=== PATIENT | male | born 1955 ===

== ENCOUNTER 2016-09-26 00:20 | Emergency (ER) | payer MEDICAID ==
--- NOTE | 2016-09-26 00:50 | EDPHY ---
H & P Stated Complaint: M1,APPROACHED AMBULANCE WITH SHEATHED KNIFE,STATED NEED LIFE BLOOD,HERE WIT Source: Patient, Police, EMS - Medical/Surgical History Other PMH: DENIES Time Seen by Provider: 09/26/16 00:26 HPI/ROS: HPI The patient presents after being placed on M1 hold by police. The patient approached an ambulance and brandishing a knife saying that he wanted blood . He was acting erratically and the police acted that he had some mental instability so they placed him on a hold and brought him in. He now is in police custody and in handcuffs. He is unwilling to provide much history at this point. REVIEW OF SYSTEMS Constitutional: No fever, no chills. Eyes: No discharge. ENT: No sore throat. Cardiovascular: No chest pain, no palpitations. Respiratory: No cough, no shortness of breath. Gastrointestinal: No abdominal pain, no vomiting. Genitourinary: No hematuria. Musculoskeletal: No back pain. Skin: No rashes. Neurological: No headache. PMHx: Denies Soc Hx: Alcohol abuse, homeless PHYSICAL General Appearance: Alert, yelling at the police currently Eyes: Pupils equal and round no pallor or injection ENT, Mouth: Mucous membranes moist Respiratory: There are no retractions, lungs are clear to auscultation Cardiovascular: Regular rate and rhythm Gastrointestinal: Abdomen is soft and non-tender, no masses, bowel sounds normal Neurological: A&O, moves all extremities Skin: Warm and dry, no rashes Musculoskeletal: Neck is supple non tender Extremities: symmetrical, full range of motion Psychiatric: Patient is oriented X 3, somewhat agitated (Riguzzi,Lili) Constitutional: Initial Vital Signs Temperature (C) 36.9 C 09/26/16 00:39 Heart Rate 100 09/26/16 00:39 Respiratory Rate 24 H 09/26/16 00:39 Blood Pressure 148/95 H 09/26/16 00:39 O2 Sat (%) 96 09/26/16 00:39 O2 Delivery Mode Room Air Allergies/Adverse Reactions: No Known Allergies Allergy (Unverified 09/26/16 00:39) Home Medications: Medication Instructions Recorded NK [No Known Home Meds] 09/26/16 Medical Decision Making ED Course/Re-evaluation: 7:30 a.m.- The patient was stable throughout my shift and he de-escalated and was able to rest while in the emergency room. He is currently awaiting psychiatric evaluation. Labs have returned and revealed that his alcohol was slightly elevated. (Lili Humphries) Care assumed at 6:[address] Lili Humphries with plan for psychiatric evaluation when clinically sober. 1013: psych evaluation obtained, recommendation including Dr. XU Singer opinion we should vacate hold. Not homicidal or suicidal or psychotic now. (Souleymane Tucker) Differential Diagnosis: This is a 60-year-old man who denies any past medical history who presents on an M1 hold brought in by paramedics after threatening them and brandishing a knife. He is quite agitated and seems somewhat psychotic. This could be related to underlying alcohol use. He does not have any past psychiatric history that we are aware of. Differential diagnosis includes alcohol intoxication, polysubstance abuse, psychosis related to underlying schizophrenia. (Lili Humphries) - Data Points Laboratory Results: Laboratory Results 09/26/16 01:14 09/26/16 01:14 09/26/16 09/26/16 01:18 01:14 WBC 5.87 10^3/uL (3.80-9.50) RBC 4.65 10^6/uL (4.40-6.38) Hgb 13.9 g/dL (13.7-17.5) Hct 40.2 % (40.0-51.0) MCV 86.5 fL (81.5-99.8) MCH 29.9 pg (27.9-34.1) MCHC 34.6 g/dL (32.4-36.7) RDW 14.1 % (11.5-15.2) Plt Count 198 10^3/uL (150-400) MPV 8.5 L fL (8.7-11.7) Neut % (Auto) 41.7 % (39.3-74.2) Lymph % (Auto) 35.8 % (15.0-45.0) [place] % (Auto) 19.1 H % (4.5-13.0) Eos % (Auto) 2.2 % (0.6-7.6) Baso % (Auto) 1.0 % (0.3-1.7) Nucleat RBC Rel Count 0.0 % (0.0-0.2) Absolute Neuts (auto) 2.45 10^3/uL (1.70-6.50) Absolute Lymphs (auto) 2.10 10^3/uL (1.00-3.00) Absolute Monos (auto) 1.12 H 10^3/uL (0.30-0.80) Absolute Eos (auto) 0.13 10^3/uL (0.03-0.40) Absolute Basos (auto) 0.06 10^3/uL (0.02-0.10) Absolute Nucleated RBC 0.00 10^3/uL (0-0.01) Immature Gran % 0.2 % (0.0-1.1) Immature Gran # 0.01 10^3/uL (0.00-0.10) Sodium 131 L mEq/L (134-144) Potassium 4.0 mEq/L (3.5-5.2) Chloride 99 mEq/L (97-110) Carbon Dioxide 19 L mEq/l (22-31) Anion Gap 13 mEq/L (8-16) BUN 9 mg/dL (7-23) Creatinine 0.8 mg/dL (0.7-1.3) Estimated GFR > 60 Glucose 114 H mg/dL (70-100) Calcium 9.0 mg/dL (8.5-10.4) Total Bilirubin 0.6 mg/dL (0.1-1.4) AST 78 H IU/L (17-59) ALT 53 IU/L (21-72) Alkaline Phosphatase 71 IU/L (38-126) Total Protein 7.2 g/dL (6.3-8.2) Albumin 4.2 g/dL (3.5-5.0) Urine Opiates Screen NEGATIVE (NEGATIVE) Urine Barbiturates NEGATIVE (NEGATIVE) Ur Phencyclidine Scrn NEGATIVE (NEGATIVE) Ur Amphetamine Screen NEGATIVE (NEGATIVE) U Benzodiazepines Scrn NEGATIVE (NEGATIVE) Urine Cocaine Screen NEGATIVE (NEGATIVE) U Marijuana (THC) Screen NON-NEGATIVE H (NEGATIVE) Ethyl Alcohol 92 H mg/dL (0-10) Departure - Departure Disposition: Home, Routine, Self-Care Clinical Impression: Alcohol intoxication Qualifiers: Complication of substance-induced condition: uncomplicated Qualifier Code: ( F10.120) Alcohol abuse with intoxication, uncomplicated Condition: Good Instructions: Alcohol Intoxication (ED) Referrals: [facility] [Outside] - As per Instructions
[2016-09-26 01:21] LABS: % IMMATURE GRANULYOCYTES 0.2 % (0.0-1.1); ABSOLUTE IMMATURE GRANULOCYTES 0.01 10^3/uL (0.00-0.10); ADD DIFF? NO; ADD MORPH? NO; ADD SCAN? NO; ATYPICAL LYMPHOCYTE FLAG 30 (0-99); FRAGMENT RBC FLAG 0 (0-99); HEMATOCRIT 40.2 % (40.0-51.0); HEMOGLOBIN 13.9 g/dL (13.7-17.5); LEFT SHIFT FLG 0 (0-99); LIPEMIA HEMOLYSIS FLAG 90 (0-99); MEAN CELL HEMOGLOBIN 29.9 pg (27.9-34.1); MEAN CELL HEMOGLOBIN CONCENTR. 34.6 g/dL (32.4-36.7); MEAN CELL VOLUME 86.5 fL (81.5-99.8); MEAN PLATELET VOLUME 8.5 fL (8.7-11.7); PLATELET CLUMPS FLAG 30 (0-99); PLATELET COUNT 198 10^3/uL (150-400); RED BLOOD CELL COUNT 4.65 10^6/uL (4.40-6.38); RED CELL DISTRIBUTION WIDTH 14.1 % (11.5-15.2)
[2016-09-26 01:36] LABS: ALANINE AMINOTRANSFERASE 53 IU/L (21-72); ALBUMIN 4.2 g/dL (3.5-5.0); ALKALINE PHOSPHATASE 71 IU/L (38-126); ANION GAP 13 mEq/L (8-16); ASPARTATE AMINOTRANSFERASE 78 IU/L (17-59); BILIRUBIN,TOTAL 0.6 mg/dL (0.1-1.4); CARBON DIOXIDE 19 mEq/l (22-31); CHLORIDE 99 mEq/L (97-110); CREATININE 0.8 mg/dL (0.7-1.3); ETHANOL SERUM 92 mg/dL (0-10); GLOMERULAR FILTRATION RATE > 60; GLUCOSE 114 mg/dL (70-100); SODIUM 131 mEq/L (134-144); TOTAL PROTEIN 7.2 g/dL (6.3-8.2)
[2016-09-26] MEDS ORDERED: IPRATROPIUM BROMIDE 0.5 MG/2.5 ML DEYVIAL ONE (08:04)
[2016-09-26 08:29] VITALS: RESP 16; TEMP 98.2
[2016-09-26 10:45] VITALS: BP 139/95; PULSE 92; O2SAT 94
== END 2016-09-26 10:44 | disposition home or self-care (01) ==
DX: F10.120 Alcohol abuse with intoxication, uncomplicated (principal)
CPT/HCPCS: 80305; G0480